=== PATIENT | male | born 2005 | race Caucasian/White ===

== ENCOUNTER 2024-05-08 10:45 | Outpatient (CLI) | payer OTHER, SELFPAY ==
[2024-05-08 11:42] LABS: Strep Group A RT-PCR NOT DETECTED (Negative)
== END 2024-05-08 10:46 | disposition home or self-care (01) ==
LOC: ANHLAB 10:48
PROVIDERS: PCP Family Medicine; Visit Provider Physician Assistant Medical
DX: J02.9 Acute pharyngitis, unspecified (principal); J35.8 Other chronic diseases of tonsils and adenoids; R59.1 Generalized enlarged lymph nodes
CPT/HCPCS: 87651

== ENCOUNTER 2024-07-09 08:59 | Outpatient (CLI) | payer OTHER, SELFPAY ==
--- OUTSIDE RECORDS SUMMARY | 2024-07-09 09:08 | XMS_ITS | Referral Summary ---
Author Organization [address] Address [address] [place] [id number] Care Team Providers Care Ornamental Metal Worker Name Role Phone Unknown, Notinfile Primary Care Provider Unavail able Allergies No known active allergies Medications No known medications Active Problems No known active problems Social History Tobacco Use Types Packs/Day Years Used Date Smoking Tobacco: Never Assessed Sex and Gender Information Value Date Recorded Sex Assigned at Not on file Legal Sex Male 12:45 PM GEOPHYSICAL MANAGER Gender Identity Not on file Sexual Orientation Not on file Last Filed Vital Signs Vital Sign Reading Time Taken Comments Blood Pressure 129/79 04/04/2024 5:46 PM GEOPHYSICAL MANAGER Pulse 80 04/04/2024 5:46 PM GEOPHYSICAL MANAGER Temperature 37.3 C (99.2 F) 04/04/2024 5:46 PM GEOPHYSICAL MANAGER Respiratory Rate 20 04/04/2024 5:46 PM GEOPHYSICAL MANAGER Oxygen Saturation 98% 04/04/2024 5:46 PM GEOPHYSICAL MANAGER Inhaled Oxygen Concentration - - Weight 89.4 kg (197 lb) 04/04/2024 5:46 PM GEOPHYSICAL MANAGER Height - - Body Mass Index - - Plan of Treatment Not on file Insurance [facility] HMO/PPO Address: [facility] [address] [place] [address] Care Teams Ornamental Metal Worker Relationship Specialty Start Date End Date Unknown, Notinfile PCP - General 03/12/24
--- OUTSIDE RECORDS SUMMARY | 2024-07-09 09:08 | XMS_ITS | Referral Summary ---
Author Organization [facility] Address [address] [place] [address] Care Team Providers Care Drupal Developer Name Role Phone Unruly Perez MD Primary Care Provider [phone] Source Comments [facility],non-owned Affiliates and Associated Physician Practices is amultiple site organization consisting of ambulatory clinics and hospital sitesin [place], [place], [place] and [place]. This disclosure is being madepursuant to the Care Everywhere program and may not contain all information available regarding this patient. Last updated 18.[facility] Medications * Be aware that medications may not be up to date on this document. Alwaysverify current medications with the patient. Medication Sig Dispensed Refills Start Date End Date Status loratadine (CLARITIN) 10 MG tablet Take 10 mg by mouth once daily Active oxyCODONE, immediate release, (ROXICODONE) 5 MG tablet Take 1 tablet by mouth every 4 hours as needed 3 tablet 01/24/2018 Active Active Problems Problem Noted Date Diagnosed Date Other acute appendicitis 01/21/2018 Social History Tobacco Use Types Packs/Day Years Used Date Smoking Tobacco: Never Smokeless Tobacco: Never Alcohol Use Standard Drinks/Week Comments No 0 (1 standard drink = 0.6 oz pur e alcohol) Sex and Gender Information Value Date Recorded Sex Assigned at Not on file Gender Identity Not on file Sexual Orientation Not on file Last Filed Vital Signs Vital Sign Reading Time Taken Comments Blood Pressure 102/58 01/24/2018 8:05 AM CDT Pulse 68 01/24/2018 8:05 AM CDT Temperature 37 C (98.6 F) 01/24/2018 8:05 AM CDT Respiratory Rate 14 01/24/2018 8:05 AM CDT Oxygen Saturation 98% 01/24/2018 3:05 AM CDT Inhaled Oxygen Concentration - - Weight 56 kg (123 lb 6.4 oz) 01/21/2018 10:15 PM CDT Height 175.3 cm (5' 9 ) 01/21/2018 10:15 PM CDT Body Mass Index 18.22 01/21/2018 10:15 PM CDT Body Mass Index Percentile 41.30% 01/21/2018 10: 15 PM CDT Growth Chart: [facility] (Boys, 2-2 0 Years) Functional Status Functional Status Response Date of Assess ment Is person deaf or have serious hearing difficult y? No 01/21/2018 Is person blind or have serious difficulty seein g? No 01/21/2018 Does person have serious dif ficulty walking/climbing stairs? No 01/21/2018 Does person have difficulty dressing/bathing? No 01/21/2018 Does person have difficulty doing errands alone? No 01/21/2018 Cognitive Status Response Date of Assessm ent Does person have difficulty concentrating/remembering/making decisions? No 01/21/2018 Plan of Treatment Not on file Advance Directives * Full Code (Latest Code Status on File) Date Activated Date Inactivated Comments 01/22/2018 7:10 PM 01/24/2018 10:38 AM * Full Code Date Activated Date Inactivated Comments 01/21/2018 10:07 PM 01/22/2018 7:10 PM Care Teams Drupal Developer Relationship Specialty Start Date End Date Unruly Perez MD [address] [place] [address] PCP - General Family Medicine 01/21/18
--- OUTSIDE RECORDS SUMMARY | 2024-07-09 09:08 | XMS_ITS | Patient Health Summary ---
Author Organization [facility] Address [address] [facility] [place] [address] Care Team Providers Care Home Appliances Mechanic Name Role Phone Unruly Perez MD Primary Care Provider Note from [facility],non-owned Affiliates and Associated Physician Practices is amultiple site organization consisting of ambulatory clinics and hospital sitesin [place], [place], [place] and [place]. This disclosure is being madepursuant to the Care Everywhere program and may not contain all information available regarding this patient. Last updated 18.[facility] Medications * Be aware that medications may not be up to date on this document. Alwaysverify current medications with the patient. * loratadine (CLARITIN) 10 MG tablet Take 10 mg by mouth once daily * oxyCODONE, immediate release, (ROXICODONE) 5 MG tablet(Started 01/24/2018) Take 1 tablet by mouth every 4 hours as needed Active Problems Problem Noted Date Diagnosed Date [...] 01/21/2018 10: 15 PM CDT Growth Chart: [facility] (Boys, 2-2 0 Years) Procedures * CBC W AUTO DIFFERENTIAL(Performed 01/24/2018) Performed for Other acute appendicitis, Acute appendicitis, unspecified acute appendicitis type * LAPAROSCOPIC APPENDECTOMY (PEDIATRIC)(Performed 01/22/2018) * PATHOLOGY TISSUE EXAM (STL)(Performed 01/22/2018) Performed for Acute appendicitis, unspecified acute appendicitis type * URINALYSIS W/MICROSCOPIC REFLEX TO CULTURE(Performed 01/21/2018) * DERMATOPATHOLOGY(Performed 05/27/2014) * GROSS + MICRO EXAM(Performed 05/08/2006) Results * (ABNORMAL) CBC W AUTO DIFFERENTIAL (01/24/2018 7:14 AM CDT) WBC 7.8 4.5 - 14.5 x10E9/L 01/24/2018 7:50 AM T [facility] WBC Corrected x10E9/L 01/24/2018 7:50 AM T [facility] RBC 4.33(L) 4.50 - 5.30 x10E12/L 01/24/2018 7:50 AM T [facility] Hemoglobin 12.7(L) 13.0 - 16.0 gm/dL 01/24/2018 7:50 AM T [facility] Hematocrit 37.3 37.0 - 49.0 % 01/24/2018 7:50 AM T [facility] MCV 86.1 78.0 - 98.0 fl 01/24/2018 7:50 AM T [facility] MCH 29.3 25.0 - 35.0 pg 01/24/2018 7:50 AM T [facility] MCHC 34.0 31.0 - 37.0 gm/dL 01/24/2018 7:50 AM T [facility] Platelet Count 190 100 - 400 x10E9/L 01/24/2018 7:50 AM CDT [facility] RDW-CV 12.7 11.5 - 14.0 % 01/24/2018 7:50 AM T [facility] MPV 10.3(H) 6.0 - 9.5 fl 01/24/2018 7:50 AM T [facility] Neutrophils % 65.2 24.0 - 66.0 % 01/24/2018 7:50 AM T [facility] Lymphocytes % 22.9 22.0 - 61.0 % 01/24/2018 7:50 AM CDT [facility] Monocytes % 9.9 3.0 - 15.0 % 01/24/2018 7:50 AM T [facility] Eosinophils % 1.4 0.0 - 10.0 % 01/24/2018 7:50 AM T [facility] Basophils % 0.3 % 01/24/2018 7:50 AM T [facility] Immature Granulocytes 0.3 % 01/24/2018 7:50 AM T [facility] Neutrophil Absolute 5.08 x10E9/L 01/24/2018 7:50 AM T [facility] Lymphocytes Absolute 1.78 x10E9/L 01/24/2018 7:50 AM CDT [facility] Monocytes Absolute 0.77 x10E9/L 01/24/2018 7:50 AM T [facility] Eosinophils Absolute 0.11 x10E9/L 01/24/2018 7:50 AM T [facility] Basophils Absolute 0.02 x10E9/L 01/24/2018 7:50 AM T [facility] Immature Granulocytes Absolute 0.02 x10E9/L 01/24/2018 7:50 AM T [facility] nRBC Auto 0 /100 WBC 01/24/2018 7:50 AM T [facility] Blood BLOOD SPECIMEN / Unknown Lab Venipuncture / Unknown 01/24/2018 7:14 AM CDT 01/24/2018 7:33 AM CDT Marilou Box DO LAB - HEMATOLOGY ORD ERABLES [facility] [address] [place] [address] * GROSS + MICRO EXAM (STL) (01/22/2018 4:47 PM CDT) Case Report Surgical Pathology Report Case: [id number] Authorizing Provider: Tim Jaimes MD Collected: 01/22/2018 04:47 PM Ordering Location: [facility] Received: 01/23/2018 08:35 AM Pathologist: David Daigle MD Specimen: Appendix 01/30/2018 10:51 AM T [facility] Final Diagnosis VERMIFORM APPENDIX, EXCISION: - NECROTIZING APPENDICITIS, RUPTURED. 01/30/2018 10:51 AM [facility] Clinical History The patient is a 12-year-old boy with acute appendicitis who underwent appendectomy. 01/30/2018 10:51 AM T [facility] Gross Description Submitted fixed in formalin in one container for gross and microscopic examination labeled with the patient's name, Kaley Cerda, and appendix, is a 5.5 x 0.8 x 1 cm vermiform appendix with attached mesoappendix measuring 4 x 0.8 x 0.8 cm. The external surface is dusky purple-gaitan and partially surfaced by a yellow-white fibrinous exudate. The proximal appendix and mesentery are stapled. The appendiceal lumen is occluded by a 1 cm in length x 0.4 cm in diameter brown-gaitan fecalith located at the mid aspect of the appendix. The appendiceal wall measures 0.3 cm in thickness. The appendiceal lumen varies from 0.1 cm to 0.4 cm in diameter. The specimen is serially sectioned, and career services representative sections are submitted in cassette A1. (CT/lux) 01/30/2018 10:51 AM [facility] Microscopic Description 1 H&E. Sections of the vermiform appendix show intraluminal exudate, mucosal ulceration, and transmural acute inflammation that extends to the mesoappendiceal adipose tissue with areas that show transmural necrosis. A brisk serosal exudate covers the serosa. Ganglia are present in submucosal and myenteric plexuses. (MG/EPD) 01/30/2018 10:51 AM [facility] Disclaimer The performance characteristics of all immunohistochemical and indirect immunofluorescence stains (if any) cited in this report were determined by the Histopathology Laboratory of [facility]. Some of these tests were developed by our own laboratory and have not been cleared or approved by the US Food and Drug Administration (FDA). The FDA does not require this test to go through premarket FDA review. These tests are used for clinical purposes. They should not be regarded as investigational or for research. This laboratory is certified under the Clinical Laboratory Improvement Amendments (CLIA) as qualified to perform high complexity clinical laboratory testing. This case has been personally reviewed and interpreted by the attending (teaching) pathologist. 01/30/2018 10:51 AM T [facility] Embedded Images 01/30/2018 10:51 AM [facility] Pathology/Cytolo gy ENTIRE APPENDIX / Unknown 01/22/2018 4:47 PM CDT 01/23/2018 8:35 AM CDT Tim Jaimes MD LAB - PATHOLOGY/C YTOLOGY ORDERABLES Performing Organization Address City/[facility] Co de Phone Number [facility] [address] [place] [id number] * (ABNORMAL) URINALYSIS W/MICROSCOPIC REFLEX TO CULTURE (01/21/2018 10:27 PM CDT) Color UA Yellow Straw, Yellow 01/21/2018 10:58 PM T [facility] Clarity UA Clear Clear 01/21/2018 10:58 PM T [facility] Glucose UA Negative Negative 01/21/2018 10:58 PM [facility] Bilirubin UA Negative Negative 01/21/2018 10:58 PM [facility] Ketone UA 1+(A) Negative 01/21/2018 10:58 PM [facility] Specific [place]on UA 1.020 1.005 - 1.030 01/21/2018 10:58 PM T [facility] Blood UA Negative Negative 01/21/2018 10:58 PM [facility] pH UA 6.0 5.0 - 8.0 pH 01/21/2018 10:58 PM [facility] Protein UA Negative Negative 01/21/2018 10:58 PM T [facility] Urobilinogen UA 2.0(A) Negative mg/dL 01/21/2018 10:58 PM CDT [facility] Nitrite UA Negative Negative 01/21/2018 10:58 PM CDT [facility] Leukocyte UA Negative Negative 01/21/2018 10:58 PM CDT [facility] RBC UA 0-5 None Seen, 0-5 # /hpf 01/21/2018 10:58 PM CDT [facility] WBC UA 0-5 None Seen, 0-5 # /hpf 01/21/2018 10:58 PM CDT [facility] Bacteria UA None Seen None Seen 01/21/2018 10:58 PM T [facility] Squamous Epithelial Cells 0-2 None Seen, 0-2, 3-5 /hpf 01/21/2018 10:58 PM T [facility] Mucus UA 4+ /LPF 01/21/2018 10:58 PM T [facility] Reflex Status Culture not indicated 01/21/2018 10:58 PM T [facility] Urine URINE SPECIMEN OBTAINED BY CLEAN CATCH PROCEDURE / Unknown Collection / Unknown 01/21/2018 10:27 PM CDT 01/21/2018 10:50 PM CDT Narrative [facility] - 01/21/2018 10:58 PM CDT Celestine-Savi Dial MD LAB - URINALYSIS ORD ERABLES [facility] [address] [place] [address] * PATHOLOGY TISSUE FOR DERMATOLOGY (05/27/2014 12:00 AM GAMBLING SUPERVISOR) Result CASE: [id number] PATIENT: KALEY CERDA PATHOLOGIC DIAGNOSIS: 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 GROSS DESCRIPTION: Received is one formalin filled container labeled with the patient's name and designated right 4th metacarpal. The specimen consists of a shave biopsy measuring 35c34g5 mm. Jar 0. MICROSCOPIC DESCRIPTION: Sections show papillomatosis and hypergranulosis with overlying focal parakeratosis. The base of the lesion is not visualized. Electronically signed out by Tiffany Glover M.D. 05/31/2014 1:03:38PM [facility] Comment: Performed at: Dermatopathology Laboratory [facility] Department of Dermatology [address] [facility], [address]th [place] [address] Phone number: [phone] FAX: [phone] 05/27/2014 05/28/2014 Guevara Russell LAB - PATHOLOGY/CYTO LOGY ORDERABLES [facility] [address] [place] [address]. 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 GROSS DESCRIPTION The specimen is received in a formalin-filled container labeled with the patient's name and ureterocutaneous fistula and consists of a pink-gaitan irregular piece of skin with underlying subcutaneous tissue which measures 0.5 cm x 0.3 cm x 0.2 cm. The specimen is submitted entirely in cassette A1 . (CN/lw) MICROSCOPIC DESCRIPTION A) 1 H/E Sections of the specimen submitted as ureterocutaneous fistula show connective tissue covered by stratified squamous keratinized epithelium which extends into a fistula tract, containing keratinaceous debris in the underlying connective tissue. There is mild chronic inflammation. (CAV/ld/lw) DIAGNOSIS DIAGNOSIS URETEROCUTANEOUS FISTULA. This case has been personally reviewed and interpreted by the attending (teaching) pathologist. Test Driver Cezar Cifuentes RESIDENT IN PATHOLOG Adilene Holder M.D. PATHOLOGIST Ramya Hendrix M.D. ELECTRONICALLY ALBER RAMYA HENDRIX MISCELLANEOUS SAMPLES / Unknown 05/08/2006 11:43 AM GAMBLING SUPERVISOR 05/08/2006 11:44 AM GAMBLING SUPERVISOR Historical Provider LAB - PATHOLOGY/C YTOLOGY ORDERABLES [facility] PATH REPORT Care Teams Home Appliances Mechanic Relationship Specialty Start Date End Date Unruly Perez MD [address] [place] [address] PCP - General Family Medicine 01/21/18
--- OUTSIDE RECORDS SUMMARY | 2024-07-09 09:08 | XMS_ITS | Clinical Summary ---
Author Organization [facility] Address [address] [place] [id number] Care Team Providers Care Middle Stitcher Name Role Phone Unknown, Notinfile Primary Care Provider Unavail able Allergies No known active allergies Medications No known medications Active Problems No known active problems Social History Tobacco Use Types Packs/Day Years Used Date Smoking Tobacco: Never Assessed Sex and Gender Information Value Date Recorded Sex Assigned at Not on file Legal Sex Male 12:45 PM [employer]Y DAYCARE ACTIVITIES DIRECTOR Gender Identity Not on file Sexual Orientation Not on file Obstetrics History Growth Chart Information Age Height Weight Peimgk-mju-rnid th Percentile BMI Percentile Head Circum Head Circum Percentile Date 18 years 89.4 kg (197 lb) 2023 18 years 89.4 kg (197 lb) 2023 Last Filed Vital Signs Vital Sign Reading Time Taken Comments Blood Pressure 129/79 04/04/2024 5:46 PM DOGGY DAYCARE ACTIVITIES DIRECTOR Pulse 80 04/04/2024 5:46 PM DOGGY DAYCARE ACTIVITIES DIRECTOR Temperature 37.3 C (99.2 F) 04/04/2024 5:46 PM DOGGY DAYCARE ACTIVITIES DIRECTOR Respiratory Rate 20 04/04/2024 5:46 PM DOGGY DAYCARE ACTIVITIES DIRECTOR Oxygen Saturation 98% 04/04/2024 5:46 PM DOGGY DAYCARE ACTIVITIES DIRECTOR Inhaled Oxygen Concentration - - Weight 89.4 kg (197 lb) 04/04/2024 5:46 PM DOGGY DAYCARE ACTIVITIES DIRECTOR Height - - Body Mass Index - - Plan of Treatment Health Maintenance Due Date Last Done Comments Depression Screening 2004 Hepatitis C Screening 2004 DTaP/Tdap/Td Vaccine (1 - Tdap) 08/10/2015 Varicella Vaccines (1 of 2 - 13+ 2-dose series) 2017 Meningococcal B Vaccine (1 o f 2 - Standard) 2020 Hepatitis B Screening 2022 Regular Well Visit/Exam 18-64 2022 Covid-19 Vaccine (3 - 2023-2 5 season) 2024 10/31/2020, 10/07/2020 Influenza Vaccine (#1) 2024 , 05/29/2012 HPV Vaccines Completed 12/02/2018, 06/24/2017 Meningococcal Vaccine Completed 01/04/2022 Pneumococcal vaccine <65 Aged Out No longer eligible based on patient's age to complete this topic Insurance [facility] Care Teams Middle Stitcher Relationship Specialty Start Date End Date Unknown, Notinfile PCP - General 03/12/24
--- OUTSIDE RECORDS SUMMARY | 2024-07-09 09:08 | XMS_ITS | Clinical Summary ---
Author Organization [facility] Address [address] [facility] [place] [address] Care Team Providers Care Radiation Protection Specialist Name Role Phone Unruly Perez MD Primary Care Provider [phone] Source Comments [facility],non-owned Affiliates and Associated Physician Practices is amultiple site organization consisting of ambulatory clinics and hospital sitesin [place], [place], [place] and [place]. This disclosure is being madepursuant to the Care Everywhere program and may not contain all information available regarding this patient. Last updated 18.[facility] Medications * Be aware that medications may [...] 01/21/2018 10: 15 PM CDT Growth Chart: CDC (Boys, 2-2 0 Years) Plan of Treatment Health Maintenance Due Date Last Done Comments HIV SCREENING 08/10/2019 HPV VACCINE (1 - Male 3-dose series) 08/10/2019 MENINGOCOCCAL (Group B) VACC INE (1 of 2 - Standard) 2020 HEPATITIS C SCREENING 08/05/2022 DTAP/TDAP/TD VACCINES (1 - Tdap) 08/10/2023 HEPATITIS B VACCINE (1 of 3 - 19+ 3-dose series) 08/10/2023 COVID-19 VACCINE (1 - 2023-2 5 season) 2024 INFLUENZA VACCINE (#1) 2024 DEPRESSION SCREENING 05/20/2024 ZOSTER VACCINE (1 of 2) 2054 HIB VACCINE Aged Out No longer eligi ble based on patient's age to complete this topic MENINGOCOCCAL VACCINE Aged Out No christy hanna eligible based on patient's age to complete this topic PNEUMOCOCCAL VACCINE Aged Out No long er eligible based on patient's age to complete this topic Advance Directives * Full Code (Latest Code Status on File) Date Activated Date Inactivated Comments 01/22/2018 7:10 PM 01/24/2018 10:38 AM * Full Code Date Activated Date Inactivated Comments 01/21/2018 10:07 PM 01/22/2018 7:10 PM Care Teams Radiation Protection Specialist Relationship Specialty Start Date End Date Unruly Perez MD [address] [place] [address] PCP - General Family Medicine 01/21/18
[2024-07-09 10:02] LABS: Strep Group A RT-PCR NOT DETECTED (Negative)
[2024-07-09 10:03] LABS: Monoscreen Negative (Negative); Negative Monotest Control Negative (Negative); Positive Monotest Control Positive (Positive)
[2024-07-13 01:38] LABS: Herpes Simplex Type 1 DNA PCR Not Detected (Not Detected); Herpes Simplex Type 2 DNA PCR Not Detected (Not Detected)
== END 2024-07-09 09:00 | disposition home or self-care (01) ==
LOC: ANHLAB 09:01
PROVIDERS: PCP Family Medicine; Visit Provider Physician Assistant Medical
DX: J02.9 Acute pharyngitis, unspecified (principal); J35.8 Other chronic diseases of tonsils and adenoids; J35.1 Hypertrophy of tonsils
CPT/HCPCS: 36415; 86308; 87529; 87651

== ENCOUNTER 2024-09-18 00:29 | Day surgery (SDC) | payer OTHER, SELFPAY ==
[2024-09-11 14:19] VITALS: BMI 28.3
--- NOTE | 2024-09-11 14:26 | PC.NURSE ---
Report to the Outpatient Waiting Room, entrance under the green pavilion located off [facility], at time _0600_ on date _[id number]_. Planned Procedure Time: _0730_.? Time changes happen often and if your time is changed the preop area will call you the afternoon before. - You and your visitor will be asked to self-screen and do not enter if you have any COVID symptoms. Please call surgeon if you need to reschedule. - A mask is optional within the hospital at this time. Patients may have clear liquids (water, carbonated beverages, clear teas, apple juice) until 3 hours prior to surgery with a maximum of 20 ounces. - No food from midnight until time of surgery and no smoking, or chewing tobacco (or any form of nicotine). No chewing gum, candy or mints. Take only the following medications with a SIP of water on the morning of surgery: ___None___ DO NOT STOP ANY OF YOUR OTHER PRESCRIPTION MEDICATIONS PRIOR TO SURGERY EXCEPT THE FOLLOWING Hold all vitamins and supplements for 3 days per anesthesiologist. Medications to discontinue per physician Date to take last dose Please no make-up, nail malagasy, hairspray, perfume, deodorant, or body powder the day of surgery.? No jewelry (including any body piercings) or valuables the day of surgery, leave them at home.? Please take a shower or bath the night before, or the morning of, surgery with an antibacterial soap.? Wear comfortable, loose fitting clothing.? - Jewelry must be removed prior to entering the operating room.? Rings and piercings that are not removed may be cut off. - The hospital will not accept responsibility for valuables.? - Please leave all valuables, including medications, at home the day of surgery. If you are going home after surgery, a licensed residential driver must drive you home.? - NO public transportation without another adult if you receive anesthesia. - We recommend that an adult stay with you for 24 hours following discharge. - We also recommend that you do not drive, make important decision, drink alcoholic beverages, or take any drugs that were not prescribed by your health care provider for at least 24 hours after your discharge time. Follow any additional instructions given to you from your surgeon. Telephone instructions given to __Griffin___and asked if any additional questions and then verbalized understanding. Patient advised to call surgeon office or pre surgery nurse liaison [phone] if any additional questions.
[2024-09-18] VITALS (7 sets, daily range): BP systolic 98–131; BP diastolic 54–79; PULSE 56–96; RESP 12–16; TEMP 36.7–37.1; O2SAT 98–100; BMI 27.0
--- OUTSIDE RECORDS SUMMARY | 2024-09-18 00:31 | XMS_ITS | Clinical Summary ---
Author Organization [address] Address [address] [place] [id number] Care Team Providers Care Consumer Relations Complaint Clerk Name Role Phone Unknown, Notinfile Primary Care Provider Unavail able Allergies No known active allergies Medications No known medications Active Problems No known active problems Social History Tobacco Use Types Packs/Day Years Used Date Smoking Tobacco: Never Assessed Sex and Gender Information Value Date Recorded Sex Assigned at Not on file Legal Sex Male 12:45 PM SUPERVISOR RIDE ASSEMBLY Gender Identity Not on file Sexual Orientation Not on file Obstetrics History Last Filed Vital Signs Vital Sign Reading Time Taken Comments Blood Pressure 129/79 04/04/2024 5:46 PM SUPERVISOR [employer]IDE [employer]SEMBLY Pulse 80 04/04/2024 5:46 PM SUPERVISOR RIDE ASSEMBLY Temperature 37.3 C (99.2 F) 04/04/2024 5:46 PM SUPERVISOR RIDE ASSEMBLY Respiratory Rate 20 04/04/2024 5:46 PM SUPERVISOR RIDE ASSEMBLY Oxygen Saturation 98% 04/04/2024 5:46 PM SUPERVISOR RIDE ASSEMBLY Inhaled Oxygen Concentration - - Weight 89.4 kg (197 lb) 04/04/2024 5:46 PM SUPERVISOR RIDE ASSEMBLY Height - - Body Mass Index - [...] 5 season) 2024 10/31/2020, 10/07/2020 Influenza Vaccine (Season Ended) 2025 02/23/2020, 05/29/2012 HPV Vaccines Completed 12/02/2018, 06/24/2017 Meningococcal Vaccine Completed 01/04/2022 Pneumococcal vaccine <65 Aged Out No longer eligible based on patient's age to complete this topic Insurance [facility] HMO/PPO Address: [address] [address] [place] [address] Care Teams Consumer Relations Complaint Clerk Relationship Specialty Start Date End Date Unknown, Notinfile PCP - General 03/12/24
--- OUTSIDE RECORDS SUMMARY | 2024-09-18 00:32 | XMS_ITS | Referral Summary ---
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 Gender Identity Not on file Sexual Orientation Not on file Last Filed Vital Signs Vital Sign Reading Time Taken Comments Blood Pressure 129/79 04/04/2024 5:46 PM PLUMBING AND HEATING CONTRACTOR Pulse 80 04/04/2024 5:46 PM PLUMBING AND HEATING CONTRACTOR Temperature 37.3 C (99.2 F) 04/04/2024 5:46 PM PLUMBING AND HEATING CONTRACTOR Respiratory Rate 20 04/04/2024 5:46 PM PLUMBING AND HEATING CONTRACTOR Oxygen Saturation 98% 04/04/2024 5:46 PM PLUMBING AND HEATING CONTRACTOR Inhaled Oxygen Concentration - - Weight 89.4 kg (197 lb) 04/04/2024 5:46 PM PLUMBING AND HEATING CONTRACTOR Height - - Body Mass Index - - Plan of Treatment Not on file Insurance [facility] HMO/PPO Address: [facility] [address] [place] [address] Care Teams Global Ceo Relationship Specialty Start Date End Date Unknown, Notinfile PCP - General 03/12/24
--- OUTSIDE RECORDS SUMMARY | 2024-09-18 00:32 | XMS_ITS | Clinical Summary ---
Author Organization [facility] [employer] Address [address] [place] [address] Care Team Providers Care Sledger Name Role Phone Unruly Perez MD Primary Care Provider [phone] Source Comments [facility] [employer],non-owned Affiliates and Associated Physician Practices is amultiple site organization consisting of ambulatory clinics and hospital sitesin [place], [place], [place] and [place]. This disclosure is being madepursuant to the Care Everywhere program and may not contain all information available regarding this patient. Last updated 18.[facility] [employer] Medications * Be aware that medications may not be up to date on this document. Alwaysverify current medications with the patient. 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 Gender Identity Not on file Sexual Orientation [...] Mass Index 18.22 01/21/2018 10:15 PM CDT Plan of Treatment Health Maintenance Due Date Last Done Comments HIV SCREENING 08/10/2019 HPV VACCINE (1 - Male 3-dose series) 08/10/2019 MENINGOCOCCAL (Group B) VACC INE SHARED DECISION-MAKING (1 of 2 - Standard) 2020 HEPATITIS C SCREENING 08/05/2022 DTAP/TDAP/TD VACCINES (1 - Tdap) 08/10/2023 HEPATITIS B VACCINE (1 of 3 - 19+ 3-dose series) 08/10/2023 COVID-19 VACCINE (1 - 2023-2 5 season) 2024 DEPRESSION SCREENING 05/20/2024 INFLUENZA VACCINE (Season Ended) 2025 ZOSTER VACCINE (1 of 2) 2054 HIB VACCINE Aged Out No longer eligi ble based on patient's age to complete this topic MENINGOCOCCAL GROUPS A/C/Y/W VACCINE Aged Out No longer eligible b ased on patient's age to complete this topic PNEUMOCOCCAL VACCINE Aged Out No long er eligible based on patient's age to complete this topic Insurance [facility] Advance Directives * Full Code (Latest Code Status on File) Date Activated Date Inactivated Comments 01/22/2018 7:10 PM 01/24/2018 10:38 AM * Full Code Date Activated Date Inactivated Comments 01/21/2018 10:07 PM 01/22/2018 7:10 PM Care Teams Sledger Relationship Specialty Start Date End Date Unruly Perez MD [address] [place] [address] PCP - General Family Medicine 01/21/18
[2024-09-18] MEDS: LACTATED RINGERS 1,000 ML 30 ML IV CONT (06:20)
--- NOTE | 2024-09-18 06:58 | WPDANESEPPF ---
Anes - Initial Pre Proc Eval Procedure: Operation Date: 09/18/24 07:30 Proposed Procedures p Tonsillectomy - Raleigh Manzanares MD Date/Time: 09/18/24 06:58 Surgeon: Raleigh Manzanares MD Pre Op Diagnosis: chronic tonsilitis, hypertrophy of tonsils, Patient Data Age: 19 Gender: M Height: 1.88 m Weight: 95.5 kg Last Vital Signs Temp 36.7 C 09/18/24 06:28 Pulse 74 09/18/24 06:28 Resp 16 09/18/24 06:28 BP 127/72 09/18/24 06:28 Pulse Ox 100 09/18/24 06:28 O2 Del Method Room Air 09/18/24 06:28 Allergies Allergy/AdvReac Type Severity Reaction Status Date / Time No Known Allergies Allergy Verified 09/18/24 06:09 Home Medications ?Medication ?Instructions ?Recorded ?Confirmed ?Type No Home Medications 10/24/21 09/11/24 History Patient hx anesthesia problems: none Family hx anesthesia problems: none Results Review: All pre-operative results and documents have been reviewed as part of the pre-operative evaluation. [facility] Past Medical History Medical History (Updated 08/10/24 @ 09:53 by Raleigh Manzanares MD) Cryptic tonsil Hypertrophy of tonsils Chronic tonsillitis Acute appendicitis Family History Family History Father Family history of diabetes mellitus in first degree relative Social History Social History (Updated 08/10/24 @ 09:37 by Rae Patel) Social History: Caffeine- occasionally Smoking status: Never smoker Tobacco type: cigarettes Alcohol intake: never Substance use: former Substance use type: marijuana Do You Feel Safe in your Home?: Yes Lack of Transportation: No Lack of Food: Never True Current Housing: I Have Housing Concerned About Future Housing: No Difficulty Paying Gas/Electric Bills: No Difficulty Paying for Meds: No Currently Unemployed: YES Education: High School Diploma/GED Difficulty w/ Childcare or Family Care: No Living arrangements: with family Gender identity (if verbalized by the patient): Male Sexual Orientation (if Verbalized by the Patient): Straight or Heterosexual Spiritual care concerns: No Anes - Eval Final PreProcedure Day of Procedure 09/18/24 06:58 Patient weight: overweight Heart: regular rate and rhythm Lungs: clear to auscultation Airway: Mallampati scale class 1 Neurological: alert and oriented Last oral intake: >/= 8 hours ASA classification: II Emergent: no Anesthetic plan: proceed Anesthesia type and monitoring: general ETT and standard monitoring Results Review: All pre-operative results and documents have been reviewed as part of the pre-operative evaluation. Informed Consent: The patient's anesthetic plan and its attendant risks and benefits were discussed with the patient/family/POA. Questions were solicited and answers provided to the satisfaction of the patient/family/POA.
--- NOTE | 2024-09-18 07:17 | PM.IMHP ---
H&P: HPI History of Present Illness Date/Time: 09/18/24 07:17 Chief Complaint: chronic tonsillitis PMF Past Medical History Medical History (Updated 08/10/24 @ 09:53 by Raleigh Manzanares MD) Cryptic tonsil Hypertrophy of tonsils Chronic tonsillitis Acute appendicitis Family History Family History Father Family history of diabetes mellitus in first degree relative Social History Social History (Updated 08/10/24 @ 09:37 by Rae Patel) Social History: Caffeine- occasionally Smoking status: Never smoker Tobacco type: cigarettes Alcohol intake: never Substance use: former Substance use type: marijuana Do You Feel Safe in your Home?: Yes Lack of Transportation: No Lack of Food: Never True Current Housing: I Have Housing Concerned About Future Housing: No Difficulty Paying Gas/Electric Bills: No Difficulty Paying for Meds: No Currently Unemployed: YES Education: High School Diploma/GED Difficulty w/ Childcare or Family Care: No Living arrangements: with family Gender identity (if verbalized by the patient): Male Sexual Orientation (if Verbalized by the Patient): Straight or Heterosexual Spiritual care concerns: No Meds Home Medications and Allergies Home Medications ?Medication ?Instructions ?Recorded ?Confirmed ?Type No Home Medications 10/24/21 09/11/24 History Allergies Allergy/AdvReac Type Severity Reaction Status Date / Time No Known Allergies Allergy Verified 09/18/24 06:09 Vital Signs Vital Signs - 24 hr 09/18/24 06:28 Temperature 36.7 C Pulse Rate 74 Respiratory Rate 16 Blood Pressure 127/72 Pulse Oximetry 100 Oxygen Delivery Room Air Assessment and Plan Assessment and plan (1) Cryptic tonsil: Code(s): J35.8 - Other chronic diseases of tonsils and adenoids Status: Acute (2) Hypertrophy of tonsils: Code(s): J35.1 - Hypertrophy of tonsils Status: Acute (3) Chronic tonsillitis: Code(s): J35.01 - Chronic tonsillitis Status: Acute Plan 19-year-old male with chronic tonsillitis hypertrophy of tonsils and cryptic tonsils hypertrophy of tonsils, cryptic tonsils We will schedule tonsillectomy under general anesthesia -Risks for tonsillectomy were discussed including but not limited to bleeding infection, injury to teeth, gums, lips and/or tongue. TMJ problems. Delayed bleeding that may require further surgery. All the questions were answered to the best of my ability and the patient wished to proceed. The procedures will be scheduled in a timely fashion. A thorough discussion with the patient including physical exam findings,diagnosis and the treatment plan ,all questions were answered to the best of my knowledge ,patient agreed to the diagnosis ,and wanted to go ahead with the treatment plan.
--- NOTE | 2024-09-18 07:17 | WPDHPUPDATE1 ---
History and Physical Update Update Date/Time: 09/18/24 07:17 History and Physical has been reviewed, including an updated exam of the patient. There are NO changes in the patient's condition. Risks, benefits, and alternatives have been discussed and questions answered. Patient agrees to proceed with procedure. 19-year-old male with chronic tonsillitis hypertrophy of tonsils and cryptic tonsils hypertrophy of tonsils, cryptic tonsils We will schedule tonsillectomy under general anesthesia -Risks for tonsillectomy were discussed including but not limited to bleeding infection, injury to teeth, gums, lips and/or tongue. TMJ problems. Delayed bleeding that may require further surgery. All the questions were answered to the best of my ability and the patient wished to proceed. The procedures will be scheduled in a timely fashion. A thorough discussion with the patient including physical exam findings,diagnosis and the treatment plan ,all questions were answered to the best of my knowledge ,patient agreed to the diagnosis ,and wanted to go ahead with the treatment plan.
[2024-09-18] MEDS: ACETAMINOPHEN 500 MG TABLET 1000 MG PO (07:29)
[2024-09-18] MEDS: ceFAZolin 2 GM/D5W 50 ML 2 GM/50 ML BAG IVPB (07:30)
--- NOTE | 2024-09-18 08:08 | W.PM.PROC2 ---
Procedure Note - Detailed Date of Procedure 09/18/24 Pre-op Diagnosis chronic tonsilitis, hypertrophy of tonsils, Post-op Diagnosis Same Procedure Performed Tonsillectomy Surgeon Raleigh Manzanares MD Anesthesia General Indications Chronic tonsillits Description of Procedure After the patient was identified in the preoperative holding area, He was transported to the operating room.? Upon arrival in the OR, the patient and intended procedure were reviewed.? The Patient?? was placed in a supine position on the table.? Anesthesia was induced, and the patient was intubated. A Marielle-Hussein mouth gag was placed in the patient's mouth and opened to reveal tonsils which were? +3 in size. The palate was normal by visualization and palpation.? The tonsils were grasped with a curved Allis clamp and removed sequentially using a Bizact tonsillectomy device .? Hemostasis was achieved using suction Bovie and silk ties ?. The patient was then allowed to awaken in the OR.? The Patient?? was then extubated and taken to recovery in stable condition. Estimated Blood Loss 1 (ml) Drains No Packing No Pathology Yes (right and left tonsils separate) Complications None Condition Stable Disposition PACU [facility] Billing Surgery - Charge Forward: Surgery Billing
[2024-09-18] MEDS: oxyCODONE HCL (*CRX) 5 MG TAB IR PO (08:54)
== END 2024-09-18 09:27 | disposition home or self-care (01) ==
PROVIDERS: PCP Family Medicine; Visit Provider Otolaryngology Otolaryngology/Facial Plastic Surgery
PROC: (CPT 42826; principal; 2024-09-18 07:30)
DX: J35.01 Chronic tonsillitis (principal); J35.8 Other chronic diseases of tonsils and adenoids; F12.90 Cannabis use, unspecified, uncomplicated
CPT/HCPCS: 42826; 88304; A9270; J0330; J0690; J1100; J2003; J2250; J2405; J2704; J3010; J7120